=== PATIENT | male | born 1970 | race Caucasian/White ===

== ENCOUNTER → 2019-08-19 | Outpatient (CLI) | payer BC ==
--- NOTE | 2019-08-19 13:24 | Diagnostic Imaging Report ---
EXAMINATION: Left ankle at 12:48 p.m. INDICATION: Injury, follow-up fracture. Three views were obtained. There are no prior studies available for comparison. FINDINGS: There are oblique, slightly displaced fractures of the distal fibula at the level of the plafond. There is no other fracture or acute bony abnormality appreciated. The ankle mortise is not widened, and the talar dome is smooth. There is mild soft tissue edema about the ankle joint. IMPRESSION: 1. There are oblique, slightly displaced fractures of the distal fibula at the level of the plafond. There is no acute bony abnormality noted otherwise. 2. If previous studies are available, they would be helpful for comparison. Dictated by: Dictated on workstation # [id number]
== END ==
LOC: RAD FS 12:44
PROVIDERS: ATTEND Nurse Practitioner
DX: S82.832D Other fracture of upper and lower end of left fibula, subsequent encounter for closed fracture with routine healing (principal)
CPT/HCPCS: 73610

== ENCOUNTER → 2019-09-02 | Outpatient (CLI) | payer BC ==
--- NOTE | 2019-09-02 13:12 | Diagnostic Imaging Report ---
INDICATION: Pain. FINDINGS: There is an oblique fracture through the distal fibula extending into the superolateral ankle mortise. The plafond and talar dome are intact. There is no other fracture. IMPRESSION: Oblique fracture through the distal fibula extending into the superolateral ankle mortise. Dictated by: Dictated on workstation # [id number]
== END ==
LOC: RAD FS 12:48
PROVIDERS: ATTEND Nurse Practitioner
DX: S82.832A Other fracture of upper and lower end of left fibula, initial encounter for closed fracture (principal); X58.XXXA Exposure to other specified factors, initial encounter
CPT/HCPCS: 73610

== ENCOUNTER → 2019-10-02 | Outpatient (CLI) | payer OTHER ==
--- NOTE | 2019-10-02 13:11 | Diagnostic Imaging Report ---
INDICATION: Fracture follow up. COMPARISON: 09/02/2019. FINDINGS: Three radiographic views of the left ankle were obtained and again show obliquely oriented fracture of the distal fibula. Fracture fragments are in stable alignment with slight displacement. There has been no significant interval bridging callus formation. No new acute fracture or dislocation is seen. Joint spaces are maintained. There is improved, but residual mild soft tissue edema. IMPRESSION: 1. Stable nonacute fracture of the distal left fibula as described above. Dictated by: Dictated on workstation # [id number]
== END ==
LOC: RAD FS 12:47
PROVIDERS: ATTEND Nurse Practitioner
DX: S82.832D Other fracture of upper and lower end of left fibula, subsequent encounter for closed fracture with routine healing (principal)
CPT/HCPCS: 73610

== ENCOUNTER → 2019-12-01 | Outpatient (CLI) | payer OTHER ==
--- NOTE | 2019-12-01 14:38 | Diagnostic Imaging Report ---
INDICATION: Fracture, follow up. TECHNIQUE: Three views of the left ankle. CORRELATION STUDY: 10/02/2019. FINDINGS: Obliquely oriented slightly displaced fracture of the distal fibula is again demonstrated. Lateral displacement, proximally slightly greater than width of the cortex remains present. No significant bridging callus formation. The distal tibia is intact. Ankle mortise is unchanged with the talar dome intact. Mild soft tissue swelling along the lateral aspect. IMPRESSION: No appreciable interval healing of an obliquely oriented minimally displaced distal fibular fracture. Dictated by: Dictated on workstation # [id number]
== END ==
LOC: RAD FS 12:57
PROVIDERS: ATTEND Nurse Practitioner
DX: S82.832D Other fracture of upper and lower end of left fibula, subsequent encounter for closed fracture with routine healing (principal); X58.XXXD Exposure to other specified factors, subsequent encounter
CPT/HCPCS: 73610

== ENCOUNTER → 2020-03-23 | Outpatient (CLI) | payer OTHER ==
--- NOTE | 2020-03-23 13:30 | Diagnostic Imaging Report ---
INDICATION: Fracture followup. COMPARISON: 12/01/2019. TECHNIQUE: Three radiographs of the left ankle dated 03/23/2020. FINDINGS: Interval healing of the previously noted distal fibular fracture with osseous bridging now identified, best seen on the oblique view. The alignment appears stable from the prior examination with persistent minimal lateral displacement. No new fracture or dislocation. No destructive osseous process. The talar dome is unremarkable. The ankle mortise is symmetric. No significant soft tissue swelling. IMPRESSION: Interval healing of the previously noted distal fibular fracture with alignment remaining stable without new acute osseous abnormality. Dictated by: Dictated on workstation # [id number]
== END ==
LOC: RAD FS 12:46
PROVIDERS: ATTEND Nurse Practitioner
DX: S82.832D Other fracture of upper and lower end of left fibula, subsequent encounter for closed fracture with routine healing (principal)
CPT/HCPCS: 73610